=== PATIENT | female | born 1940 | race Caucasian/White ===

== ENCOUNTER 2016-10-17 05:32 | Day surgery (SDC) | payer OTHER, BC ==
[~2016-10-17] VITALS: Ht 170.2 cm; Wt 78.9 kg
[~2016-10-17 05:32] MED LIST: ASPIR 8181 MG PO; CLONAZEPAM 0.50.5 M1 PO; LEVOTHYROXIN0.088 MG PO; LIPITOR10 MG PO; OMEPRAZOLE40 MG PO; PROBIOTIC1 EAC1 PO; REMERON 30 MG T30 M1 PO; TOPROL XL25 MG PO; VITAMIN B-12100 MCG PO; VITAMIN D1000 UNI1 PO
[2016-10-17 11:25] VITALS: BP 104/67
[2016-10-17 11:39] LABS: APTT 25.7 Seconds (24.5-32.8); PROTIME 10.8 Seconds (9.3-11.4)
[2016-10-17] MEDS ORDERED: NORCO 5-325 TA1 EACH PO (13:58)
== END 2016-10-17 14:40 | disposition home or self-care (01) ==
LOC: OR 05:32 → TBA 05:32 → OR 08:05
PROVIDERS: Surgery
DX: Z45.2 Encounter for adjustment and management of vascular access device (principal); C50.911 Malignant neoplasm of unspecified site of right female breast; E78.00 Pure hypercholesterolemia, unspecified; K21.9 Gastro-esophageal reflux disease without esophagitis; E07.9 Disorder of thyroid, unspecified; F41.8 Other specified anxiety disorders; F32.89 Other specified depressive episodes; Z90.710 Acquired absence of both cervix and uterus; Z98.890 Other specified postprocedural states; Z79.899 Other long term (current) drug therapy; Z88.0 Allergy status to penicillin; Z88.2 Allergy status to sulfonamides; Z88.8 Allergy status to other drugs, medicaments and biological substances
CPT/HCPCS: 50010; 50101; 50386; 50403; 51938; 56524; 56525; 56528; 62110; 62850; 70005